=== PATIENT | female | born 1995 | race Caucasian/White ===

== ENCOUNTER 2019-01-06 19:18 | Emergency (ER) | payer BC ==
[2019-01-06] MEDS ORDERED: Azithromycin 500 MG Tab PO STA (20:13)
[2019-01-06] MEDS ORDERED: Ondansetron 4 MG Tab.DIS PO STA (20:13)
--- NOTE | 2019-01-06 20:21 | EDM.PDOC ---
ED HPI GENERAL MEDICAL PROBLEM - General Chief Complaint: General Stated Complaint: ALLERGIC REACTION Time Seen by Provider: 01/06/19 19:20 Source of Information: Reports: Patient, Family (Mom) History Limitations: Reports: No Limitations - History of Present Illness INITIAL COMMENTS - FREE TEXT/NARRATIVE: 23 y.o.w.caren came to the ED with her [id number] to vomiting X 1 after she took Omnicef for her left ear infection. She did not feel well after she took the Abx. She came to the ed to get a different Abx. No N/V/D at his time. She feels thirsty, however. No F/C. Pt is able to drink water well. No other acute medical issues BP 154/89 RR 22 Pulse ox 100% Pulse 140 Temp 36.4 Onset Date: 01/06/19 Onset Time: 08:00 Duration: Day(s):, Intermittent Location: Reports: Abdomen Quality: Reports: Other (vomited once) Severity: Mild Improves with: Reports: Other (holding the meds) Worsens with: Reports: Medication Context: Reports: Other (H/O left OM/Externa) Associated Symptoms: Reports: No Other Symptoms Treatments QUALITY REP: Reports: NSAIDS R shoulder, posterior neck, bilat hips Pain Score (Numeric/FACES): 3 - Related Data Allergies Allergy/AdvReac Type Severity Reaction Status Date / Time amoxicillin Allergy Rash Verified 01/06/19 19:27 cefdinir Allergy Joint Pain Verified 01/06/19 20:54 Home Meds: Home Meds Acetaminophen [Tylenol] 650 mg PO Q6HR PRN 06/17/14 [History] Albuterol [Ventolin HFA] 2 inh INH Q4HR PRN 06/17/14 [History] Azithromycin [Zithromax] 250 mg PO DAILY #4 tab 01/06/19 [Rx] Cefdinir [Omnicef] 300 mg PO BID 01/06/19 [History] Hydrocort/Neomycin/Polymyxin B [Cortisporin Otic Soln] 3 drop .XX Q8HR #1 bottle 01/06/19 [Rx] Hydrocortisone [Hydrocortisone 2.5% Crm] 1 applic DAILY PRN 01/06/19 [History] Ketoconazole [Nizoral 2% Crm] 1 applic BID 01/06/19 [History] Ondansetron [Zofran ODT] 4 mg PO Q6H PRN #7 tab.dis 01/06/19 [Rx] l-Norgest/E.estradion-E.estrad [Levono-E Estrad 0.15-0.03-0.01] 1 tab ASDIRECTED 01/06/19 [History] Past Medical History Psychiatric History: Reports: Anxiety Endocrine/Metabolic History: Reports: Obesity/BMI 30+ Other Dermatologic History: hx urea - Infectious Disease History Infectious Disease History: Reports: Chicken Pox Social & Family History - Family History Family Medical History: Noncontributory - Tobacco Use Smoking Status *Q: Never Smoker - Caffeine Use Caffeine Use: Reports: None - Recreational Drug Use Recreational Drug Use: No ED ROS GENERAL - Review of Systems Review Of Systems: See Below Constitutional: Reports: No Symptoms HEENT: Reports: Ear Pain Respiratory: Reports: No Symptoms Cardiovascular: Reports: Palpitations Endocrine: Reports: No Symptoms GI/Abdominal: Reports: Nausea, Vomiting (X 1) : Reports: No Symptoms Musculoskeletal: Reports: No Symptoms Skin: Reports: No Symptoms Neurological: Reports: No Symptoms Psychiatric: Reports: No Symptoms Hematologic/Lymphatic: Reports: No Symptoms Immunologic: Reports: No Symptoms ED EXAM, GENERAL - Physical Exam Exam: See Below Exam Limited By: No Limitations General Appearance: Alert, WD/WN, Obese Eye Exam: Bilateral Eye: Normal Inspection Ears: Normal External Exam Ear Exam: Bilateral Ear: Auricle Normal Nose: Normal Inspection, Normal Mucosa, No Blood Throat/Mouth: Normal Inspection, Normal Lips, Normal Voice, No Airway Compromise Head: Atraumatic, Normocephalic Neck: Normal Inspection, Supple, Non-Tender, Full Range of Motion Respiratory/Chest: No Respiratory Distress, Lungs Clear, Normal Breath Sounds, Chest Non-Tender Cardiovascular: Normal Peripheral Pulses, Regular Rate, Rhythm, No JVD GI/Abdominal: Normal Bowel Sounds, Soft, Non-Tender, No Organomegaly (Female) Exam: Deferred Rectal (Female) Exam: Deferred Back Exam: Normal Inspection, Full Range of Motion Extremities: Normal Inspection, Normal Range of Motion Neurological: Alert, Oriented, CN II-XII Intact, Normal Cognition, Normal Gait Psychiatric: Normal Affect, Normal Mood Skin Exam: Warm, Dry, Intact, Normal Color, No Rash Lymphatic: No Adenopathy EKG INTERPRETATION EKG Date: 01/06/19 Time: 19:40 Rhythm: NSR Rate (Beats/Min): 129 [place]: Normal P-Wave: Present QRS: Normal ST-T: Normal QT: Normal Comparison: NA - No Prior EKG Course - Vital Signs Text/Narrative:: 23 y.o.w.f came to the ED with her [id number] to vomiting X 1 after she took Omnicef for her left ear infection. She did not feel well after she took the Abx. She came to the ed to get a different Abx. No N/V/D at his time. She feels thirsty, however. No F/C. Pt is able to drink water well. No other acute medical issues BP 154/89 RR 22 Pulse ox 100% Pulse 140 Temp 36.4 PE: Morbid obese 23 y.o. w f with a left ear infection, elevated HR and a possible allergy to Omnicef Impression: Left OM/OE left ear, Dehydration Tx: Zitromax. Pt refused labs, I.V fluids, she can drink water at home, she said Reeam: pt was stabel in [facility] ED HR was 123 on D/C Plan: D/C with instructions Last Recorded V/S: Last Vital Signs Temp 36.4 C 01/06/19 19:20 Pulse 122 H 01/06/19 20:51 Resp 20 01/06/19 20:51 BP 135/72 01/06/19 20:51 Pulse Ox 100 01/06/19 20:51 - Orders/Labs/Meds Orders: Active Orders 24 hr Category Date Time Status EKG Documentation Completion [RC] ASDIRECTED Care 01/07/19 01:38 Active EKG 12 Lead [EK] Routine Ther 01/06/19 19:41 Ordered Meds: Medications Discontinued Medications Generic Name Dose Route Start Last Admin Trade Name Freq PRN Reason Stop Dose Admin Azithromycin 500 mg 01/06/19 20:13 01/06/19 20:51 Zithromax PO 01/06/19 20:14 500 mg ONETIME STA Administration Ondansetron HCl 4 mg 01/06/19 20:13 01/06/19 20:51 Zofran Odt PO 01/06/19 20:14 4 mg ONETIME STA Administration Departure - Departure Time of Disposition: 20:15 Disposition: Home, Self-Care 01 Condition: Good (otitis) Clinical Impression: Dehydration, Sinus tachycardia Otitis media Qualifiers: Chronicity: acute Laterality: left Otitis externa Qualifiers: Otitis externa type: unspecified type - Discharge Information Prescriptions: Hydrocort/Neomycin/Polymyxin B [Cortisporin Otic Soln] 3 drop .XX Q8HR #1 bottle Azithromycin [Zithromax] 250 mg PO DAILY #4 tab Ondansetron [Zofran ODT] 4 mg PO Q6H PRN #7 tab.dis PRN Reason: Nausea Instructions: Ondansetron oral dissolving tablet, Otitis Media, Adult, Easy-to- Read, Drug Allergy, [id number], Azithromycin tablets Referrals: Ramirez Singh MD [Primary Care Provider] - Forms: ED Department Discharge Additional Instructions: Please take the Zithromax (Abx) and Zofran (for nausea) as recommended, please increase water intake, please follow up with your regular MD at clinic for recheck, come back if your symptoms get worse acutely - My Orders Last 24 Hours: My Active Orders 01/06/19 19:41 EKG 12 Lead [EK] Routine 01/07/19 01:38 EKG Documentation Completion [RC] ASDIRECTED - Assessment/Plan Last 24 Hours: My Active Orders 01/06/19 19:41 EKG 12 Lead [EK] Routine 01/07/19 01:38 EKG Documentation Completion [RC] ASDIRECTED
== END 2019-01-06 20:55 | disposition home or self-care (01) ==
LOC: FB.ED 19:18
DX: H66.92 Otitis media, unspecified, left ear (principal); H60.92 Unspecified otitis externa, left ear; E86.0 Dehydration; F41.9 Anxiety disorder, unspecified; Z79.899 Other long term (current) drug therapy; Z88.1 Allergy status to other antibiotic agents
CPT/HCPCS: 93005; 99283; A9270